=== PATIENT | male | born 1990 | race Caucasian/White ===

== ENCOUNTER 2018-04-15 01:34 | Emergency (ER) | payer SELFPAY ==
[~2018-04-15] VITALS: Ht 172.7 cm; Wt 93.0 kg
[2018-04-15 01:35] VITALS: BP_SYST 153
[2018-04-15 01:41] VITALS: BP_SYST 153
== END 2018-04-15 01:41 ==
LOC: SED 01:34
DX: Z02.89 Encounter for other administrative examinations (principal); J45.909 Unspecified asthma, uncomplicated
CPT/HCPCS: 99283